=== PATIENT | female | born 1930 | race Caucasian/White ===

== ENCOUNTER 2019-12-11 15:13 | Inpatient (IN) ==
[2019-12-11] MEDS ORDERED: 0.9 % Sodium Chloride 1,000 ML IVC ONE (15:33)
[2019-12-11] MEDS ORDERED: cefTRIAXone 1,000 MG in Water for inj. (sterile) 10 ML IVP ONE (15:48)
[2019-12-11] MEDS ORDERED: Azithromycin 500 MG in 0.9 % Sodium Chloride 250 ML IVPB ONE (15:48)
[2019-12-11 15:52] LABS: Basophils % 0.1 %; Hematocrit 30.5 % (35.3-44.9); Lymphocytes # 0.6 K/mcL (0.6-4.6); Lymphocytes % 8.2 %; Mean Corpuscular HGB Conc 32.8 g/dL (31.6-35.5); Mean Corpuscular Hemoglobin 30.7 pg (28.0-33.3); Mean Corpuscular Volume 93.6 fL (83.0-100.0); Mean Platelet Volume 10.3 fL (9.4-12.4); Monocytes # 0.1 K/mcL (0.0-1.3); Neutrophils # 6.3 K/mcL (1.6-8.9); Platelet Count 165 K/mcL (140-400); Red Blood Count 3.26 M/mcL (3.82-4.97); Red Cell Distribution Width 12.7 % (11.5-14.5); Segmented Neutrophils % 89.7 %
[2019-12-11 16:17] LABS: Albumin 3.1 g/dL (3.5-5.7); Albumin/Globulin Ratio 0.9 (1.1-2.2); Bilirubin,Direct 0.2 mg/dL (0.0-0.2); Bilirubin,Indirect 0.5 mg/dL (0.0-1.0); Bilirubin,Total 0.7 mg/dL (0.3-1.0); Calcium 7.8 mg/dL (8.6-10.3); Globulin 3.6 g/dL (2.4-3.5); Potassium 3.9 mEq/L (3.5-5.1); Total Protein 6.7 g/dL (6.4-8.9); Troponin I 2.97 ng/mL (< 0.04)
[2019-12-11 16:17] LABS: Bacteria,Urine Few per hpf (None-Few); Bilirubin,Urine Negative (Negative); Blood,Urine Large (Negative); Clarity,Urine Turbid (Clear); Color,Urine Yellow (Yellow); Glucose,Urine (UA) Normal (Normal); Ketones,Urine Negative (Negative); Leukocyte Esterase,Urine Negative (Negative); Mucus,Urine Few per lpf (None-Few); Nitrite,Urine Negative (Negative); PH,Urine 5.5 pH Units (5.0-8.0); Protein,Urine >=300 mg/dL (Neg-Trace); RBC,Urine 15-30 per hpf (0-3); Specific Gravity,Urine 1.016 (1.010-1.025); Squamous Epithelial Cell,Urine Few per hpf (None-Few); Urobilinogen,Urine Normal (Normal)
[2019-12-11] MEDS ORDERED: Aspirin 325 MG TABLET PO ONE (16:21)
[2019-12-11] MEDS ORDERED: *HR* Heparin 5,000 UNIT/ML VIAL IVP PRN ×2 (16:34)
[2019-12-11] MEDS ORDERED: *HR* Heparin 5,000 UNIT/ML VIAL IVP ONE (16:34)
[2019-12-11] MEDS ORDERED: Heparin 25,000 UNIT/250 ML D5W 25,000 UNIT/250 ML IV.SOLN IVC SCH (16:45)
[2019-12-11] MEDS ORDERED: Vancomycin 1,500 MG/265 ML IV.SOLN IVPB ONE (19:00)
[2019-12-11 19:18] LABS: Hematocrit 28.6 % (35.3-44.9); Hemoglobin 9.2 g/dL (11.5-15.4); Mean Corpuscular HGB Conc 32.2 g/dL (31.6-35.5); Mean Corpuscular Hemoglobin 30.8 pg (28.0-33.3); Mean Corpuscular Volume 95.7 fL (83.0-100.0); Mean Platelet Volume 10.5 fL (9.4-12.4); Platelet Count 149 K/mcL (140-400); Red Blood Count 2.99 M/mcL (3.82-4.97); Red Cell Distribution Width 12.8 % (11.5-14.5)
[2019-12-11 19:28] LABS: INR 1.2; Prothrombin Time 13.3 Seconds (9.4-12.1)
[2019-12-11 19:35] LABS: Heparin anti-factor XA UFH 0.04 IU/mL (0.30-0.70)
[2019-12-12 02:20] LABS: Hematocrit 28.8 % (35.3-44.9); Hemoglobin 9.3 g/dL (11.5-15.4)
[2019-12-12 05:07] LABS: Troponin I 4.14 ng/mL (< 0.04)
[2019-12-12] MEDS: Cefepime HCl 1,000 MG in Water for inj. (sterile) 10 ML IVP SCH ×2 (05:38→18:43)
[2019-12-12] MEDS ORDERED: *HR* Promethazine 25 MG/ML VIAL IVP PRN (07:20)
[2019-12-12] MEDS: Aspirin 81 MG TAB.CHEW PO SCH (08:03)
[2019-12-12 08:13] LABS: Hematocrit 28.7 % (35.3-44.9); Hemoglobin 9.4 g/dL (11.5-15.4); Mean Corpuscular HGB Conc 32.8 g/dL (31.6-35.5); Mean Corpuscular Hemoglobin 31.8 pg (28.0-33.3); Mean Platelet Volume 10.4 fL (9.4-12.4); Platelet Count 150 K/mcL (140-400); Red Blood Count 2.96 M/mcL (3.82-4.97); Red Cell Distribution Width 12.9 % (11.5-14.5); White Blood Count 7.6 K/mcL (4.3-11.1)
[2019-12-12 08:30] LABS: Calcium 7.1 mg/dL (8.6-10.3); Potassium 3.9 mEq/L (3.5-5.1)
[2019-12-12 08:32] LABS: Magnesium 2.1 mg/dL (1.6-2.6); Phosphorous 3.6 mg/dL (2.7-4.5)
[2019-12-12 11:51] LABS: Adenovirus F 40/41 PCR Not detected (Not detect); Astrovirus PCR Not detected (Not detect); C.difficile Toxin A/B Gene PCR Not detected (Not detect); Campylobacter by PCR Not detected (Not detect); Cryptosporidium by PCR Not detected (Not detect); Cyclospora cayetanensis PCR Not detected (Not detect); E. coli O157 by PCR Not detected (Not detect); Entamoeba histolytica PCR Not detected (Not detect); Enteroaggregative E.coli(EAEC) Not detected (Not detect); Enteropathogenic E.coli(EPEC) Not detected (Not detect); Enterotoxigenic E.coli (ETEC) Not detected (Not detect); Giardia lamblia PCR Not detected (Not detect); Norovirus GI/GII PCR Not detected (Not detect); Plesiomonas shigelloides PCR Not detected (Not detect); Rotavirus A PCR Not detected (Not detect); Salmonella PCR Not detected (Not detect); Sapovirus PCR Not detected (Not detect); Shig/EnteroinvasiveE coli EIEC Not detected (Not detect); Shigalike tox-prod E coli STEC Not detected (Not detect); Vibrio PCR Not detected (Not detect); Vibrio cholerae PCR Not detected (Not detect); Yersinia enterocolitica PCR Not detected (Not detect)
[2019-12-12] MEDS ORDERED: Perflutren Lipid Microsphere 1.3 ML in 0.9 % Sodium Chloride 8.7 ML IVP ONE ×2 (12:29→18:04)
[2019-12-12] MEDS ORDERED: *HR* Etomidate 20 MG/10 ML AMPUL IVP ONE (14:11)
[2019-12-12] MEDS ORDERED: *HR* LORazepam 2 MG/ML VIAL IVP ONE (14:11)
[2019-12-12] MEDS ORDERED: *HR* Succinylcholine 200 MG/10 ML VIAL IVP ONE (14:11)
[2019-12-12] MEDS ORDERED: Azithromycin 500 MG in 0.9 % Sodium Chloride 250 ML IVPB SCH (16:00)
[2019-12-12] MEDS ORDERED: 0.9 % Sodium Chloride 1,000 ML ONE (17:16)
[2019-12-12 17:36] LABS: ABG Base Excess -11 mEq/L (-2 to 3); ABG HCO3 20 mEq/L (21-27); ABG Oxygen Saturation 86 % (95-98); ABG PCO2 67 mmHg (35-45); ABG PH 7.08 pH Units (7.32-7.45); ABG PO2 73 mmHg (85-104); ABG TCO2 22 mEq/L (20-26); Blood Gas VT 480 cc
[2019-12-12 17:51] LABS: ABG Base Excess -8 mEq/L (-2 to 3); ABG HCO3 20 mEq/L (21-27); ABG Oxygen Saturation 90 % (95-98); ABG PCO2 48 mmHg (35-45); ABG PH 7.22 pH Units (7.32-7.45); ABG PO2 72 mmHg (85-104); ABG TCO2 21 mEq/L (20-26); Blood Gas Modality ASSIST CONTROL; Blood Gas VT 480 cc
[2019-12-12] MEDS ORDERED: Isovue-370 500 ML BOTTLE IVP ONE (17:51)
[2019-12-12] MEDS ORDERED: Artificial Tears SOLN 15 ML BOTTLE BOTH EYES PRN (18:04)
[2019-12-12] MEDS ORDERED: Albuterol 2.5 MG/3 ML NEBULIZER IH PRN (18:06)
[2019-12-12] MEDS ORDERED: Aminoglycoside Consult 1 EACH MC ONE (18:09)
[2019-12-12] MEDS ORDERED: Vancomycin 1,500 MG/265 ML IV.SOLN IVPB ONE (18:29)
[2019-12-12] MEDS ORDERED: *HR* Heparin 5,000 UNIT/ML VIAL IVP PRN ×2 (18:40)
[2019-12-12] MEDS: FentaNYL (PF) 1,000 MCG/100 ML IV.SOLN IVC SCH (18:42)
[2019-12-12] MEDS: Midazolam HCl 50 MG/100 ML IV.SOLN IVC SCH (18:42)
[2019-12-12] MEDS ORDERED: Vancomycin 1 EACH in 0.9 % Sodium Chloride 250 ML IVPB SCH (19:00)
[2019-12-12] MEDS: Dexamethasone 10 MG/ML VIAL IVP SCH (19:51)
[2019-12-12] MEDS: Chlorhexidine Rinse 15 ML MOUTHWASH MM SCH (19:51)
[2019-12-12] MEDS: Pantoprazole 40 MG VIAL IVP SCH (19:51)
[2019-12-12 20:39] LABS: Amorphous Sediment,Urine Few per hpf (None-Few); Bacteria,Urine Few per hpf (None-Few); Bilirubin,Urine Negative (Negative); Blood,Urine Moderate (Negative); Clarity,Urine Turbid (Clear); Color,Urine Yellow (Yellow); Glucose,Urine (UA) Normal (Normal); Ketones,Urine Negative (Negative); Leukocyte Esterase,Urine Trace (Negative); Mucus,Urine Few per lpf (None-Few); Nitrite,Urine Negative (Negative); PH,Urine 5.5 pH Units (5.0-8.0); Protein,Urine 100 mg/dL (Neg-Trace); RBC,Urine TNTC per hpf (0-3); Specific Gravity,Urine 1.017 (1.010-1.025); Squamous Epithelial Cell,Urine Few per hpf (None-Few); Urobilinogen,Urine Normal (Normal); WBC,Urine 15-30 per hpf (0-3)
[2019-12-12 21:03] LABS: Protein/Creatinine Ratio,Urine 1.81 mg/mg (0.00-0.20); Sodium, Urine 55.8 mEq/L
[2019-12-12] MEDS: Artificial Tears SOLN 15 ML BOTTLE BOTH EYES SCH (21:16)
[2019-12-12] MEDS: Cisatracurium 200 MG in 0.9 % Sodium Chloride 180 ML IVC SCH (21:17)
[2019-12-12] MEDS: Heparin 25,000 UNIT/250 ML D5W 25,000 UNIT/250 ML IV.SOLN IVC SCH (21:18)
[2019-12-12] MEDS ORDERED: Ipratropium/Albuterol Neb 3 ML IH SCH (22:00)
[2019-12-13] MEDS: Artificial Tears SOLN 15 ML BOTTLE BOTH EYES SCH ×7 (00:17→23:40)
[2019-12-13 03:45] LABS: Basophils % 0.2 %; Hematocrit 30.6 % (35.3-44.9); Immature Granulocytes % 1.3 % (0-4); Lymphocytes # 0.9 K/mcL (0.6-4.6); Lymphocytes % 7.5 %; Mean Corpuscular HGB Conc 32.7 g/dL (31.6-35.5); Mean Corpuscular Hemoglobin 31.3 pg (28.0-33.3); Mean Corpuscular Volume 95.6 fL (83.0-100.0); Mean Platelet Volume 10.2 fL (9.4-12.4); Monocytes # 0.4 K/mcL (0.0-1.3); Monocytes % 3.4 %; Neutrophils # 10.1 K/mcL (1.6-8.9); Platelet Count 181 K/mcL (140-400); Segmented Neutrophils % 87.6 %; White Blood Count 11.5 K/mcL (4.3-11.1)
[2019-12-13 03:52] LABS: ABG Base Excess -1 mEq/L (-2 to 3); ABG HCO3 23 mEq/L (21-27); ABG Oxygen Saturation 96 % (95-98); ABG PCO2 37 mmHg (35-45); ABG PO2 82 mmHg (85-104); ABG TCO2 24 mEq/L (20-26); Blood Gas VT 450 cc
[2019-12-13 04:06] LABS: Uric Acid 8.9 mg/dL (2.3-7.6)
[2019-12-13 04:07] LABS: Albumin 2.7 g/dL (3.5-5.7); Albumin/Globulin Ratio 0.8 (1.1-2.2); Bilirubin,Total 0.4 mg/dL (0.3-1.0); Calcium 7.2 mg/dL (8.6-10.3); Globulin 3.5 g/dL (2.4-3.5); Magnesium 1.9 mg/dL (1.6-2.6); Phosphorous 3.7 mg/dL (2.7-4.5); Potassium 4.5 mEq/L (3.5-5.1); Total Protein 6.2 g/dL (6.4-8.9)
[2019-12-13] MEDS: Cefepime HCl 1,000 MG in Water for inj. (sterile) 10 ML IVP SCH ×2 (05:38→18:03)
[2019-12-13] MEDS: FentaNYL (PF) 1,000 MCG/100 ML IV.SOLN IVC SCH (08:31)
[2019-12-13] MEDS: Chlorhexidine Rinse 15 ML MOUTHWASH MM SCH ×2 (08:34→21:26)
[2019-12-13] MEDS: Aspirin 81 MG TAB.CHEW PO SCH (08:34)
[2019-12-13] MEDS: Pantoprazole 40 MG VIAL IVP SCH (08:34)
[2019-12-13] MEDS ORDERED: 0.9 % Sodium Chloride 500 ML ONE (13:47)
[2019-12-13] MEDS: Midazolam HCl 50 MG/100 ML IV.SOLN IVC SCH (17:53)
[2019-12-13] MEDS: Dexamethasone 10 MG/ML VIAL IVP SCH (18:02)
[2019-12-13] MEDS: Cisatracurium 200 MG in 0.9 % Sodium Chloride 180 ML IVC SCH (20:05)
[2019-12-13] MEDS: Albumin 25% 25gram/100mL 25 GM/100 ML IV.SOLN IVC SCH ×3 (20:07→23:39)
[2019-12-13] MEDS ORDERED: Vancomycin 500 MG in 0.9 % Sodium Chloride Mini Bag 100 ML IVPB ONE (22:06)
[2019-12-14] MEDS: Albumin 25% 25gram/100mL 25 GM/100 ML IV.SOLN IVC SCH ×5 (01:27→19:18)
[2019-12-14] MEDS: Heparin 25,000 UNIT/250 ML D5W 25,000 UNIT/250 ML IV.SOLN IVC SCH ×2 (04:00→11:10)
[2019-12-14 04:49] LABS: VBG Ionized Calcium 0.93 mmol/L (1.15-1.35)
[2019-12-14 04:58] LABS: Basophils % 0.2 %; Hematocrit 24.6 % (35.3-44.9); Hemoglobin 7.9 g/dL (11.5-15.4); Immature Granulocytes % 1.7 % (0-4); Lymphocytes % 16.1 %; Mean Corpuscular HGB Conc 32.1 g/dL (31.6-35.5); Mean Corpuscular Hemoglobin 30.7 pg (28.0-33.3); Mean Corpuscular Volume 95.7 fL (83.0-100.0); Mean Platelet Volume 10.7 fL (9.4-12.4); Monocytes # 0.2 K/mcL (0.0-1.3); Platelet Count 147 K/mcL (140-400); Red Blood Count 2.57 M/mcL (3.82-4.97); Red Cell Distribution Width 12.9 % (11.5-14.5); White Blood Count 6.3 K/mcL (4.3-11.1)
[2019-12-14 05:18] LABS: Albumin/Globulin Ratio 1.3 (1.1-2.2); Bilirubin,Total 0.7 mg/dL (0.3-1.0); Calcium 7.3 mg/dL (8.6-10.3); Magnesium 2.2 mg/dL (1.6-2.6); Phosphorous 3.1 mg/dL (2.7-4.5); Potassium 4.2 mEq/L (3.5-5.1)
[2019-12-14 05:33] LABS: ABG Base Excess -2 mEq/L (-2 to 3); ABG HCO3 22 mEq/L (21-27); ABG Oxygen Saturation 99 % (95-98); ABG PCO2 31 mmHg (35-45); ABG PH 7.46 pH Units (7.32-7.45); ABG PO2 149 mmHg (85-104); ABG TCO2 23 mEq/L (20-26); Blood Gas Modality AF; Blood Gas VT 450 cc
[2019-12-14] MEDS: Artificial Tears SOLN 15 ML BOTTLE BOTH EYES SCH ×6 (05:34→23:59)
[2019-12-14] MEDS: Cefepime HCl 1,000 MG in Water for inj. (sterile) 10 ML IVP SCH ×2 (06:17→18:06)
[2019-12-14 06:21] LABS: Platelet Estimate Normal (Normal)
[2019-12-14] MEDS: FentaNYL (PF) 1,000 MCG/100 ML IV.SOLN IVC SCH ×2 (06:47→20:49)
[2019-12-14] MEDS: Chlorhexidine Rinse 15 ML MOUTHWASH MM SCH ×2 (08:23→20:12)
[2019-12-14] MEDS: Aspirin 81 MG TAB.CHEW PO SCH (08:23)
[2019-12-14] MEDS: Pantoprazole 40 MG VIAL IVP SCH (08:24)
[2019-12-14 11:55] LABS: Sodium, Urine 45.3 mEq/L
[2019-12-14] MEDS ORDERED: 0.9 % Sodium Chloride 500 ML ONE (16:22)
[2019-12-14] MEDS ORDERED: 0.9 % Sodium Chloride 1,000 ML IVC SCH (16:45)
[2019-12-14] MEDS: Dexamethasone 10 MG/ML VIAL IVP SCH (18:06)
[2019-12-14 19:35] LABS: ABG Base Excess -3 mEq/L (-2 to 3); ABG HCO3 24 mEq/L (21-27); ABG Oxygen Saturation 99 % (95-98); ABG PCO2 51 mmHg (35-45); ABG PH 7.27 pH Units (7.32-7.45); ABG PO2 136 mmHg (85-104); ABG TCO2 25 mEq/L (20-26); Blood Gas Modality ASSIST CONTROL; Blood Gas VT 380 cc
[2019-12-14] MEDS: Midazolam HCl 50 MG/100 ML IV.SOLN IVC SCH (20:09)
[2019-12-14] MEDS: Docusate Oral Soln 100 MG/10 ML UDC GTUBE SCH (20:12)
[2019-12-14] MEDS: Cisatracurium 200 MG in 0.9 % Sodium Chloride 180 ML IVC SCH (20:51)
[2019-12-15] MEDS: Heparin 25,000 UNIT/250 ML D5W 25,000 UNIT/250 ML IV.SOLN IVC SCH
[2019-12-15] MEDS ORDERED: Vancomycin 500 MG in 0.9 % Sodium Chloride Mini Bag 100 ML IVPB SCH (03:00)
[2019-12-15 03:58] LABS: VBG Ionized Calcium 0.94 mmol/L (1.15-1.35)
[2019-12-15 04:12] LABS: Albumin 4.3 g/dL (3.5-5.7); Albumin/Globulin Ratio 1.9 (1.1-2.2); Bilirubin,Total 0.6 mg/dL (0.3-1.0); Calcium 7.1 mg/dL (8.6-10.3); Globulin 2.3 g/dL (2.4-3.5); Magnesium 2.3 mg/dL (1.6-2.6); Phosphorous 2.9 mg/dL (2.7-4.5); Potassium 4.1 mEq/L (3.5-5.1); Total Protein 6.6 g/dL (6.4-8.9)
[2019-12-15 04:14] LABS: Heparin anti-factor XA UFH 0.74 IU/mL (0.30-0.70)
[2019-12-15] MEDS: Artificial Tears SOLN 15 ML BOTTLE BOTH EYES SCH ×5 (04:16→19:42)
[2019-12-15 04:37] LABS: ABG Base Excess -3 mEq/L (-2 to 3); ABG HCO3 23 mEq/L (21-27); ABG Oxygen Saturation 96 % (95-98); ABG PCO2 41 mmHg (35-45); ABG PH 7.35 pH Units (7.32-7.45); ABG PO2 83 mmHg (85-104); ABG TCO2 24 mEq/L (20-26); Blood Gas Modality ASSIST CONTROL; Blood Gas VT 400 cc
[2019-12-15 05:17] LABS: Basophils % 0.2 %; Hematocrit 23.6 % (35.3-44.9); Hemoglobin 7.4 g/dL (11.5-15.4); Immature Granulocytes % 4.8 % (0-4); Lymphocytes # 0.9 K/mcL (0.6-4.6); Lymphocytes % 10.8 %; Mean Corpuscular HGB Conc 31.4 g/dL (31.6-35.5); Mean Corpuscular Hemoglobin 31.1 pg (28.0-33.3); Mean Corpuscular Volume 99.2 fL (83.0-100.0); Monocytes # 0.4 K/mcL (0.0-1.3); Monocytes % 4.6 %; Platelet Count 170 K/mcL (140-400); Red Blood Count 2.38 M/mcL (3.82-4.97); Segmented Neutrophils % 79.6 %; White Blood Count 8.1 K/mcL (4.3-11.1)
[2019-12-15 05:22] LABS: Neutrophils # 6.5 K/mcL (1.6-8.9)
[2019-12-15 05:49] LABS: Platelet Estimate Normal (Normal); Reactive Lymphocytes Present (Not Present)
[2019-12-15] MEDS: Cefepime HCl 1,000 MG in Water for inj. (sterile) 10 ML IVP SCH ×2 (05:52→17:59)
[2019-12-15] MEDS: Pantoprazole 40 MG VIAL IVP SCH ×2 (07:49→19:42)
[2019-12-15] MEDS: Aspirin 81 MG TAB.CHEW PO SCH (07:49)
[2019-12-15] MEDS: Docusate Oral Soln 100 MG/10 ML UDC GTUBE SCH ×2 (07:49→19:42)
[2019-12-15] MEDS: Chlorhexidine Rinse 15 ML MOUTHWASH MM SCH ×2 (07:49→19:42)
[2019-12-15] MEDS ORDERED: *HR* Heparin 5,000 UNIT/ML VIAL ONE (09:20)
[2019-12-15] MEDS: FentaNYL (PF) 1,000 MCG/100 ML IV.SOLN IVC SCH ×2 (10:10→21:42)
[2019-12-15] MEDS ORDERED: 0.9 % Sodium Chloride 500 ML ONE (10:40)
[2019-12-15] MEDS: Calcium Gluconate 1gm/50mL 1 GM/50 ML BAG IVPB SCH ×2 (15:07→15:58)
[2019-12-15 17:21] LABS: VBG Ionized Calcium 1.07 mmol/L (1.15-1.35)
[2019-12-15 17:29] LABS: Hematocrit 25.1 % (35.3-44.9)
[2019-12-15 17:36] LABS: Calcium 7.8 mg/dL (8.6-10.3); Magnesium 2.3 mg/dL (1.6-2.6); Phosphorous 2.4 mg/dL (2.7-4.5); Potassium 3.9 mEq/L (3.5-5.1)
[2019-12-15] MEDS: Midazolam HCl 50 MG/100 ML IV.SOLN IVC SCH (17:54)
[2019-12-15] MEDS: Dexamethasone 10 MG/ML VIAL IVP SCH (18:00)
[2019-12-15] MEDS: Cisatracurium 200 MG in 0.9 % Sodium Chloride 180 ML IVC SCH (19:42)
[2019-12-16] MEDS: Artificial Tears SOLN 15 ML BOTTLE BOTH EYES SCH ×6 (03:18→19:45)
[2019-12-16 03:27] LABS: Hematocrit 25.9 % (35.3-44.9); Hemoglobin 8.2 g/dL (11.5-15.4); Mean Corpuscular HGB Conc 31.7 g/dL (31.6-35.5); Mean Corpuscular Hemoglobin 30.7 pg (28.0-33.3); Mean Platelet Volume 10.4 fL (9.4-12.4); Platelet Count 179 K/mcL (140-400); Red Blood Count 2.67 M/mcL (3.82-4.97); Red Cell Distribution Width 13.5 % (11.5-14.5); White Blood Count 9.2 K/mcL (4.3-11.1)
[2019-12-16 03:29] LABS: VBG Ionized Calcium 1.04 mmol/L (1.15-1.35)
[2019-12-16 03:43] LABS: ABG Base Excess -2 mEq/L (-2 to 3); ABG HCO3 24 mEq/L (21-27); ABG Oxygen Saturation 94 % (95-98); ABG PCO2 42 mmHg (35-45); ABG PH 7.36 pH Units (7.32-7.45); ABG PO2 71 mmHg (85-104); ABG TCO2 25 mEq/L (20-26); Blood Gas Modality AF; Blood Gas VT 400 cc
[2019-12-16 03:43] LABS: Lymphocytes # 0.7 K/mcL (0.6-4.6); Monocytes # 0.7 K/mcL (0.0-1.3); Neutrophils # 7.7 K/mcL (1.6-8.9)
[2019-12-16 03:44] LABS: Platelet Estimate Normal (Normal)
[2019-12-16 03:49] LABS: Albumin/Globulin Ratio 1.7 (1.1-2.2); Bilirubin,Total 0.7 mg/dL (0.3-1.0); Calcium 7.5 mg/dL (8.6-10.3); Globulin 2.4 g/dL (2.4-3.5); Magnesium 2.3 mg/dL (1.6-2.6); Phosphorous 1.8 mg/dL (2.7-4.5); Potassium 4.3 mEq/L (3.5-5.1); Total Protein 6.4 g/dL (6.4-8.9)
[2019-12-16] MEDS ORDERED: Vancomycin 500 MG in 0.9 % Sodium Chloride Mini Bag 100 ML IVPB ONE (05:00)
[2019-12-16] MEDS: Cefepime HCl 1,000 MG in Water for inj. (sterile) 10 ML IVP SCH ×2 (05:12→17:00)
[2019-12-16] MEDS: Cisatracurium 200 MG in 0.9 % Sodium Chloride 180 ML IVC SCH (06:20)
[2019-12-16] MEDS: FentaNYL (PF) 1,000 MCG/100 ML IV.SOLN IVC SCH ×3 (07:00→21:57)
[2019-12-16] MEDS: Chlorhexidine Rinse 15 ML MOUTHWASH MM SCH ×2 (07:01→19:45)
[2019-12-16] MEDS: Aspirin 81 MG TAB.CHEW PO SCH (07:26)
[2019-12-16] MEDS: Pantoprazole 40 MG VIAL IVP SCH ×2 (07:26→19:46)
[2019-12-16] MEDS: Docusate Oral Soln 100 MG/10 ML UDC GTUBE SCH ×2 (07:26→19:45)
[2019-12-16] MEDS: Calcium Gluconate 1gm/50mL 1 GM/50 ML BAG IVPB SCH ×2 (07:37→08:12)
[2019-12-16] MEDS ORDERED: Albumin 25% 25gram/100mL 25 GM/100 ML IV.SOLN IVPB ONE (09:31)
[2019-12-16] MEDS: Midazolam HCl 50 MG/100 ML IV.SOLN IVC SCH (10:35)
[2019-12-16] MEDS ORDERED: Furosemide 40 MG/4 ML VIAL IVP ONE ×2 (11:00→21:00)
[2019-12-16] MEDS: Dexamethasone 10 MG/ML VIAL IVP SCH (17:00)
[2019-12-16] MEDS: *HR* Heparin 5,000 UNIT/ML VIAL SQ SCH (17:01)
[2019-12-17] MEDS: Artificial Tears SOLN 15 ML BOTTLE BOTH EYES SCH ×7 (00:09→23:09)
[2019-12-17 03:59] LABS: Basophils # 0.1 K/mcL (0.0-0.2); Basophils % 0.5 %; Hematocrit 25.6 % (35.3-44.9); Hemoglobin 8.1 g/dL (11.5-15.4); Immature Granulocytes % 8.8 % (0-4); Lymphocytes # 1.1 K/mcL (0.6-4.6); Lymphocytes % 10.2 %; Mean Corpuscular HGB Conc 31.6 g/dL (31.6-35.5); Mean Corpuscular Hemoglobin 31.2 pg (28.0-33.3); Mean Corpuscular Volume 98.5 fL (83.0-100.0); Mean Platelet Volume 10.6 fL (9.4-12.4); Monocytes # 0.8 K/mcL (0.0-1.3); Monocytes % 7.4 %; Platelet Count 183 K/mcL (140-400); Red Cell Distribution Width 13.8 % (11.5-14.5); Segmented Neutrophils % 73.1 %
[2019-12-17 04:02] LABS: VBG Ionized Calcium 1.05 mmol/L (1.15-1.35)
[2019-12-17] MEDS: Midazolam HCl 50 MG/100 ML IV.SOLN IVC SCH (04:05)
[2019-12-17 04:07] LABS: ABG Base Excess 1 mEq/L (-2 to 3); ABG HCO3 26 mEq/L (21-27); ABG Oxygen Saturation 97 % (95-98); ABG PCO2 44 mmHg (35-45); ABG PH 7.38 pH Units (7.32-7.45); ABG PO2 95 mmHg (85-104); ABG TCO2 27 mEq/L (20-26); Blood Gas VT 400 cc
[2019-12-17 04:22] LABS: Albumin 4.1 g/dL (3.5-5.7); Albumin/Globulin Ratio 1.6 (1.1-2.2); Bilirubin,Total 0.7 mg/dL (0.3-1.0); Calcium 7.7 mg/dL (8.6-10.3); Globulin 2.5 g/dL (2.4-3.5); Magnesium 2.2 mg/dL (1.6-2.6); Phosphorous 2.8 mg/dL (2.7-4.5); Platelet Estimate Normal (Normal); Potassium 4.5 mEq/L (3.5-5.1); Total Protein 6.6 g/dL (6.4-8.9)
[2019-12-17] MEDS: *HR* Heparin 5,000 UNIT/ML VIAL SQ SCH ×2 (04:53→18:10)
[2019-12-17] MEDS: Cefepime HCl 1,000 MG in Water for inj. (sterile) 10 ML IVP SCH ×2 (04:53→18:10)
[2019-12-17] MEDS: FentaNYL (PF) 1,000 MCG/100 ML IV.SOLN IVC SCH ×3 (04:54→20:27)
[2019-12-17] MEDS ORDERED: Vancomycin 500 MG in 0.9 % Sodium Chloride Mini Bag 100 ML IVPB ONE (05:00)
[2019-12-17] MEDS: Calcium Gluconate 1gm/50mL 1 GM/50 ML BAG IVPB SCH ×2 (05:35→06:12)
[2019-12-17 06:02] LABS: INR 1.1; Prothrombin Time 12.7 Seconds (9.4-12.1)
[2019-12-17 06:04] LABS: Activated Partial Thrombo Time 25.2 Seconds (26.0-36.0)
[2019-12-17] MEDS ORDERED: Albumin 25% 25gram/100mL 25 GM/100 ML IV.SOLN IVPB SCH (09:00)
[2019-12-17] MEDS: Aspirin 81 MG TAB.CHEW PO SCH (09:15)
[2019-12-17] MEDS: Docusate Oral Soln 100 MG/10 ML UDC GTUBE SCH ×2 (09:15→19:58)
[2019-12-17] MEDS: Chlorhexidine Rinse 15 ML MOUTHWASH MM SCH ×2 (09:16→19:58)
[2019-12-17] MEDS: Pantoprazole 40 MG VIAL IVP SCH ×2 (09:16→19:58)
[2019-12-17] MEDS: Furosemide 40 MG/4 ML VIAL IVP SCH ×2 (09:16→19:59)
[2019-12-17] MEDS ORDERED: *HR* Heparin 5,000 UNIT/ML VIAL CRRT PRN (09:50)
[2019-12-17] MEDS ORDERED: *HR* Alteplase (Cathflo) 2 MG VIAL IVP PRN (09:50)
[2019-12-17] MEDS ORDERED: 0.9 % Sodium Chloride 1,000 ML PRIME ONE ×2 (09:50)
[2019-12-17] MEDS ORDERED: 0.9 % Sodium Chloride 1,000 ML PRIME SCH (10:00)
[2019-12-17] MEDS: Dexmedetomidine HCl 400 MCG/100 ML MLS IVC SCH ×3 (10:20→20:59)
[2019-12-17] MEDS: Furosemide 240 MG in 0.9 % Sodium Chloride 96 ML IVC SCH (12:43)
[2019-12-17] MEDS ORDERED: Aminoglycoside Consult 1 EACH MC ONE (14:50)
[2019-12-17] MEDS: PrismaSATE BGK 4/2.5 5,000 ML CRRT SCH ×2 (15:49)
[2019-12-17] MEDS: Albumin 25% 25gram/100mL 25 GM/100 ML IV.SOLN IVPB SCH ×2 (15:51→23:07)
[2019-12-17] MEDS: Dexamethasone 10 MG/ML VIAL IVP SCH (18:09)
[2019-12-17] MEDS: Cisatracurium 200 MG in 0.9 % Sodium Chloride 180 ML IVC SCH (18:11)
[2019-12-18] MEDS: Dexmedetomidine HCl 400 MCG/100 ML MLS IVC SCH ×5 (01:55→21:21)
[2019-12-18] MEDS: FentaNYL (PF) 1,000 MCG/100 ML IV.SOLN IVC SCH ×5 (02:26→23:07)
[2019-12-18] MEDS: Artificial Tears SOLN 15 ML BOTTLE BOTH EYES SCH ×5 (03:54→21:13)
[2019-12-18 04:35] LABS: Basophils # 0.1 K/mcL (0.0-0.2); Basophils % 0.5 %; Hematocrit 27.3 % (35.3-44.9); Hemoglobin 8.8 g/dL (11.5-15.4); Immature Granulocytes % 8.5 % (0-4); Lymphocytes # 1.1 K/mcL (0.6-4.6); Lymphocytes % 12.3 %; Mean Corpuscular HGB Conc 32.2 g/dL (31.6-35.5); Mean Corpuscular Hemoglobin 30.9 pg (28.0-33.3); Mean Corpuscular Volume 95.8 fL (83.0-100.0); Mean Platelet Volume 10.8 fL (9.4-12.4); Monocytes # 0.6 K/mcL (0.0-1.3); Monocytes % 6.2 %; Neutrophils # 6.7 K/mcL (1.6-8.9); Platelet Count 189 K/mcL (140-400); Red Blood Count 2.85 M/mcL (3.82-4.97); Red Cell Distribution Width 13.2 % (11.5-14.5); Segmented Neutrophils % 72.5 %; White Blood Count 9.2 K/mcL (4.3-11.1)
[2019-12-18 05:17] LABS: Platelet Estimate Normal (Normal)
[2019-12-18] MEDS: *HR* Heparin 5,000 UNIT/ML VIAL SQ SCH ×2 (05:49→17:39)
[2019-12-18] MEDS: Cefepime HCl 1,000 MG in Water for inj. (sterile) 10 ML IVP SCH ×2 (05:50→17:37)
[2019-12-18 06:13] LABS: Albumin 5.3 g/dL (3.5-5.7); Bilirubin,Total 1.2 mg/dL (0.3-1.0); Calcium 9.3 mg/dL (8.6-10.3); Globulin 2.7 g/dL (2.4-3.5); Potassium 3.8 mEq/L (3.5-5.1)
[2019-12-18] MEDS: Docusate Oral Soln 100 MG/10 ML UDC GTUBE SCH ×2 (08:02→21:12)
[2019-12-18] MEDS: Aspirin 81 MG TAB.CHEW PO SCH (08:03)
[2019-12-18] MEDS: Pantoprazole 40 MG VIAL IVP SCH ×2 (08:03→21:12)
[2019-12-18] MEDS: Chlorhexidine Rinse 15 ML MOUTHWASH MM SCH ×2 (08:03→21:12)
[2019-12-18] MEDS: Albumin 25% 25gram/100mL 25 GM/100 ML IV.SOLN IVPB SCH ×2 (08:03→15:59)
[2019-12-18] MEDS: PrismaSATE BGK 4/2.5 5,000 ML CRRT SCH ×2 (09:10)
[2019-12-18] MEDS: Furosemide 240 MG in 0.9 % Sodium Chloride 96 ML IVC SCH (10:44)
[2019-12-18] MEDS: Bisacodyl 10 MG RECTAL SUPPOSITORY RC SCH (11:56)
[2019-12-18] MEDS: Metoclopramide 10 MG/2 ML VIAL IVP SCH (16:00)
[2019-12-18] MEDS: Dexamethasone 10 MG/ML VIAL IVP SCH (17:40)
[2019-12-18] MEDS: Midazolam HCl 50 MG/100 ML IV.SOLN IVC SCH (18:12)
[2019-12-18] MEDS: Cisatracurium 200 MG in 0.9 % Sodium Chloride 180 ML IVC SCH (18:18)
[2019-12-19] MEDS: Artificial Tears SOLN 15 ML BOTTLE BOTH EYES SCH ×7 (00:21→23:39)
[2019-12-19] MEDS: Metoclopramide 10 MG/2 ML VIAL IVP SCH ×4 (00:21→23:47)
[2019-12-19] MEDS: Albumin 25% 25gram/100mL 25 GM/100 ML IV.SOLN IVPB SCH ×4 (00:21→23:47)
[2019-12-19] MEDS: Dexmedetomidine HCl 400 MCG/100 ML MLS IVC SCH ×5 (02:21→23:52)
[2019-12-19 03:57] LABS: ABG Base Excess 9 mEq/L (-2 to 3); ABG HCO3 32 mEq/L (21-27); ABG Oxygen Saturation 97 % (95-98); ABG PCO2 38 mmHg (35-45); ABG PH 7.53 pH Units (7.32-7.45); ABG PO2 81 mmHg (85-104); ABG TCO2 33 mEq/L (20-26); Blood Gas Modality ASSIST CONTROL; Blood Gas VT 400 cc
[2019-12-19] MEDS: FentaNYL (PF) 1,000 MCG/100 ML IV.SOLN IVC SCH ×2 (05:28→14:23)
[2019-12-19 05:31] LABS: Hematocrit 27.2 % (35.3-44.9); Hemoglobin 8.8 g/dL (11.5-15.4); Mean Corpuscular HGB Conc 32.4 g/dL (31.6-35.5); Mean Corpuscular Hemoglobin 31.1 pg (28.0-33.3); Mean Corpuscular Volume 96.1 fL (83.0-100.0); Mean Platelet Volume 10.8 fL (9.4-12.4); Platelet Count 181 K/mcL (140-400); Red Blood Count 2.83 M/mcL (3.82-4.97); Red Cell Distribution Width 12.9 % (11.5-14.5); White Blood Count 10.1 K/mcL (4.3-11.1)
[2019-12-19 05:48] LABS: Calcium 9.2 mg/dL (8.6-10.3); Phosphorous 3.7 mg/dL (2.7-4.5); Potassium 3.7 mEq/L (3.5-5.1)
[2019-12-19] MEDS: *HR* Heparin 5,000 UNIT/ML VIAL SQ SCH ×2 (06:20→17:05)
[2019-12-19] MEDS: Cefepime HCl 1,000 MG in Water for inj. (sterile) 10 ML IVP SCH ×2 (06:20→17:06)
[2019-12-19] MEDS ORDERED: Dextrose Gel 15 GM/37.5 ML TUBE PO PRN ×2 (06:35)
[2019-12-19] MEDS ORDERED: *HR* Dextrose 50 % in Water (Vial) 50 ML VIAL IVP PRN (06:35)
[2019-12-19] MEDS ORDERED: D5% in Water 1,000 ML IVC PRN (06:35)
[2019-12-19] MEDS: Chlorhexidine Rinse 15 ML MOUTHWASH MM SCH ×2 (09:05→20:08)
[2019-12-19] MEDS: Aspirin 81 MG TAB.CHEW PO SCH (09:05)
[2019-12-19] MEDS: Pantoprazole 40 MG VIAL IVP SCH ×2 (09:05→20:08)
[2019-12-19] MEDS: Bisacodyl 10 MG RECTAL SUPPOSITORY RC SCH (09:05)
[2019-12-19] MEDS: Docusate Oral Soln 100 MG/10 ML UDC GTUBE SCH ×2 (09:05→20:08)
[2019-12-19] MEDS: PrismaSATE BGK 4/2.5 5,000 ML CRRT SCH ×2 (10:37)
[2019-12-19] MEDS: Furosemide 240 MG in 0.9 % Sodium Chloride 96 ML IVC SCH (11:25)
[2019-12-19] MEDS: Midazolam HCl 50 MG/100 ML IV.SOLN IVC SCH ×2 (12:09→23:50)
[2019-12-19] MEDS: Insulin LISPRO 300 UNITS/3 ML VIAL SQ SCH ×2 (12:39→18:02)
[2019-12-19] MEDS: Lactulose Oral Soln 20 GM/30 ML UDC PO SCH (17:05)
[2019-12-19] MEDS: Dexamethasone 10 MG/ML VIAL IVP SCH (17:06)
[2019-12-19] MEDS: Cisatracurium 200 MG in 0.9 % Sodium Chloride 180 ML IVC SCH (18:23)
[2019-12-19] MEDS ORDERED: *HR* Midazolam HCl 2 MG/2 ML VIAL IVP PRN (21:37)
[2019-12-19] MEDS: FentaNYL (PF) 2,500 MCG/50 ML IV.SOLN IVC SCH (22:34)
[2019-12-19] MEDS ORDERED: *HR* Midazolam HCl 2 MG/2 ML VIAL IVP ONE (23:39)
[2019-12-20] MEDS: Insulin LISPRO 300 UNITS/3 ML VIAL SQ SCH ×5 (01:20→23:49)
[2019-12-20] MEDS: Artificial Tears SOLN 15 ML BOTTLE BOTH EYES SCH ×6 (03:45→23:49)
[2019-12-20] MEDS: Dexmedetomidine HCl 400 MCG/100 ML MLS IVC SCH ×4 (04:10→22:49)
[2019-12-20 04:53] LABS: Basophils % 0.4 %; Eosinophils % 0.3 %; Hematocrit 24.5 % (35.3-44.9); Immature Granulocytes % 4.2 % (0-4); Lymphocytes # 0.9 K/mcL (0.6-4.6); Lymphocytes % 9.2 %; Mean Corpuscular HGB Conc 32.7 g/dL (31.6-35.5); Mean Corpuscular Hemoglobin 31.1 pg (28.0-33.3); Mean Corpuscular Volume 95.3 fL (83.0-100.0); Mean Platelet Volume 10.7 fL (9.4-12.4); Monocytes # 0.7 K/mcL (0.0-1.3); Monocytes % 6.9 %; Neutrophils # 7.6 K/mcL (1.6-8.9); Platelet Count 177 K/mcL (140-400); Red Blood Count 2.57 M/mcL (3.82-4.97); White Blood Count 9.6 K/mcL (4.3-11.1)
[2019-12-20 05:12] LABS: Albumin 5.5 g/dL (3.5-5.7); Albumin/Globulin Ratio 2.4 (1.1-2.2); Bilirubin,Total 1.4 mg/dL (0.3-1.0); Calcium 8.9 mg/dL (8.6-10.3); Globulin 2.3 g/dL (2.4-3.5); Potassium 3.4 mEq/L (3.5-5.1); Total Protein 7.8 g/dL (6.4-8.9)
[2019-12-20] MEDS: Cefepime HCl 1,000 MG in Water for inj. (sterile) 10 ML IVP SCH ×2 (05:49→17:21)
[2019-12-20] MEDS: Lactulose Oral Soln 20 GM/30 ML UDC PO SCH ×2 (05:50→17:23)
[2019-12-20] MEDS: *HR* Heparin 5,000 UNIT/ML VIAL SQ SCH ×2 (05:51→17:22)
[2019-12-20 05:52] LABS: ABG Base Excess 7 mEq/L (-2 to 3); ABG HCO3 32 mEq/L (21-27); ABG Oxygen Saturation 96 % (95-98); ABG PCO2 47 mmHg (35-45); ABG PH 7.44 pH Units (7.32-7.45); ABG PO2 81 mmHg (85-104); ABG TCO2 34 mEq/L (20-26); Blood Gas Modality AF; Blood Gas VT 450 cc
[2019-12-20] MEDS: Albumin 25% 25gram/100mL 25 GM/100 ML IV.SOLN IVPB SCH ×3 (09:00→23:21)
[2019-12-20] MEDS: Pantoprazole 40 MG VIAL IVP SCH ×2 (09:02→19:55)
[2019-12-20] MEDS: Docusate Oral Soln 100 MG/10 ML UDC GTUBE SCH ×2 (09:02→19:55)
[2019-12-20] MEDS: Chlorhexidine Rinse 15 ML MOUTHWASH MM SCH ×2 (09:02→19:56)
[2019-12-20] MEDS: Metoclopramide 10 MG/2 ML VIAL IVP SCH ×3 (09:02→23:21)
[2019-12-20] MEDS: Aspirin 81 MG TAB.CHEW PO SCH (09:03)
[2019-12-20] MEDS: PrismaSATE BGK 4/2.5 5,000 ML CRRT SCH ×2 (10:21)
[2019-12-20] MEDS: Midazolam HCl 50 MG/100 ML IV.SOLN IVC SCH ×2 (11:54→22:51)
[2019-12-20] MEDS: FentaNYL (PF) 2,500 MCG/50 ML IV.SOLN IVC SCH ×2 (11:55→22:51)
[2019-12-20] MEDS ORDERED: Milk and Molasses Enema 200 ML RC ONE (14:44)
[2019-12-20] MEDS: Dexamethasone 10 MG/ML VIAL IVP SCH (17:22)
[2019-12-20] MEDS: Cisatracurium 200 MG in 0.9 % Sodium Chloride 180 ML IVC SCH (19:12)
[2019-12-20] MEDS ORDERED: Furosemide 40 MG/4 ML VIAL IVP SCH (21:00)
[2019-12-21] MEDS: Dexmedetomidine HCl 400 MCG/100 ML MLS IVC SCH (01:15)
[2019-12-21 04:08] VITALS: BP 129/54
== END 2019-12-21 05:12 | disposition short-term general hospital (02) | DRG 870 ==
LOC: 2NENU 15:13 → EMEROOARM 15:13 → SUATTDRO 18:08 → 2NENU 19:55
PROVIDERS: ADMIT Internal Medicine; ATTEND Internal Medicine

== ENCOUNTER 2020-11-07 09:14 | Inpatient (IN) ==
[2020-11-07] MEDS ORDERED: 0.9 % Sodium Chloride 1,000 ML IVC ONE (09:19)
[2020-11-07] MEDS ORDERED: Furosemide 40 MG/4 ML VIAL ONE (09:26)
[2020-11-07 09:29] LABS: ABG Base Excess -4 mEq/L (-2 to 3); ABG HCO3 23 mEq/L (21-27); ABG Oxygen Saturation 90 % (95-98); ABG PCO2 48 mmHg (35-45); ABG PH 7.28 pH Units (7.32-7.45); ABG PO2 66 mmHg (85-104); ABG TCO2 24 mEq/L (20-26)
[2020-11-07] MEDS ORDERED: Piperacillin/Tazobactam 3.375 GM in 0.9 % Sodium Chloride Mini Bag 100 ML IVPB ONE (09:42)
[2020-11-07] MEDS ORDERED: Furosemide 40 MG/4 ML VIAL IVP ONE (09:45)
[2020-11-07 09:46] LABS: Hematocrit 39.1 % (35.3-44.9); Hemoglobin 12.1 g/dL (11.5-15.4); Mean Corpuscular HGB Conc 30.9 g/dL (31.6-35.5); Mean Corpuscular Hemoglobin 30.8 pg (28.0-33.3); Mean Corpuscular Volume 99.5 fL (83.0-100.0); Mean Platelet Volume 11.8 fL (9.4-12.4); Platelet Count 262 K/mcL (140-400); Red Blood Count 3.93 M/mcL (3.82-4.97); Red Cell Distribution Width 13.8 % (11.5-14.5); White Blood Count 24.4 K/mcL (4.3-11.1)
[2020-11-07 10:12] LABS: Lymphocytes # 10.3 K/mcL (0.6-4.6); Neutrophils # 14.2 K/mcL (1.6-8.9); Reactive Lymphocytes Present (Not Present)
[2020-11-07 10:13] LABS: Platelet Estimate Normal (Normal)
[2020-11-07 11:07] LABS: Bacteria,Urine Few per hpf (None-Few); Bilirubin,Urine Negative (Negative); Blood,Urine Large (Negative); Budding Yeast,Urine Few per hpf (None Seen); Clarity,Urine Clear (Clear); Color,Urine Yellow (Yellow); Glucose,Urine (UA) Normal (Normal); Ketones,Urine Negative (Negative); Leukocyte Esterase,Urine Trace (Negative); Mucus,Urine Few per lpf (None-Few); Nitrite,Urine Negative (Negative); Protein,Urine 50 mg/dL (Neg-Trace); RBC,Urine TNTC per hpf (0-3); Specific Gravity,Urine 1.015 (1.010-1.025); Squamous Epithelial Cell,Urine Few per hpf (None-Few); Urobilinogen,Urine Normal (Normal); WBC,Urine 15-30 per hpf (0-3)
[2020-11-07 11:26] LABS: Calcium 8.6 mg/dL (8.6-10.3); Potassium 3.3 mEq/L (3.5-5.1); Troponin I 0.35 ng/mL (< 0.04)
[2020-11-07] MEDS ORDERED: Aspirin 81 MG TAB.CHEW PO SCH (11:45)
[2020-11-07] MEDS ORDERED: Ondansetron 4 MG/2 ML VIAL IVP PRN (11:52)
[2020-11-07] MEDS ORDERED: Naloxone 0.4 MG/ML INJ IVP PRN (11:52)
[2020-11-07] MEDS ORDERED: Perflutren Lipid Microsphere 1.3 ML in 0.9 % Sodium Chloride 8.7 ML IVP PRN (11:54)
[2020-11-07] MEDS ORDERED: *HR* Heparin 5,000 UNIT/ML VIAL IVP PRN ×2 (16:03)
[2020-11-07] MEDS: Heparin 25,000UNIT/250ML 1/2NS 25,000 UNIT/250 ML IV.SOLN IVC SCH (17:27)
[2020-11-07] MEDS ORDERED: *HR* Heparin 5,000 UNIT/ML VIAL SQ SCH (18:00)
[2020-11-07] MEDS: Piperacillin/Tazobactam 3.375 GM in 0.9 % Sodium Chloride Mini Bag 100 ML IVPB SCH (20:41)
[2020-11-08 00:48] LABS: VBG HCO3 25 mEq/L (21-27); VBG PCO2 42 mmHg (41-51); VBG PH 7.39 pH Units (7.32-7.42); VBG PO2 75 mmHg (25-50)
[2020-11-08 00:49] LABS: Basophils # 0.1 K/mcL (0.0-0.2); Basophils % 0.5 %; Eosinophils # 0.1 K/mcL (0.0-0.6); Eosinophils % 0.5 %; Immature Granulocytes % 0.9 % (0-4); Lymphocytes # 2.8 K/mcL (0.6-4.6); Lymphocytes % 18.8 %; Mean Corpuscular HGB Conc 31.9 g/dL (31.6-35.5); Mean Corpuscular Hemoglobin 30.8 pg (28.0-33.3); Mean Corpuscular Volume 96.6 fL (83.0-100.0); Monocytes % 6.7 %; Neutrophils # 10.9 K/mcL (1.6-8.9); Platelet Count 171 K/mcL (140-400); Red Blood Count 3.21 M/mcL (3.82-4.97); Red Cell Distribution Width 13.9 % (11.5-14.5); Segmented Neutrophils % 72.6 %
[2020-11-08 00:50] LABS: Hemoglobin 9.9 g/dL (11.5-15.4)
[2020-11-08 01:07] LABS: Magnesium 1.8 mg/dL (1.6-2.6); Phosphorous 4.4 mg/dL (2.7-4.5); Potassium 3.7 mEq/L (3.5-5.1)
[2020-11-08] MEDS: Aspirin Enteric Coated 81 MG Tablet PO SCH (07:51)
[2020-11-08] MEDS: PARoxetine 20 MG TABLET PO SCH (07:51)
[2020-11-08] MEDS: allopurinoL 100 MG TABLET PO SCH (07:51)
[2020-11-08] MEDS: Furosemide 40 MG/4 ML VIAL IVP SCH (07:52)
[2020-11-08] MEDS: Piperacillin/Tazobactam 3.375 GM in 0.9 % Sodium Chloride Mini Bag 100 ML IVPB SCH ×2 (10:50→22:47)
[2020-11-08] MEDS ORDERED: 0.9 % Sodium Chloride 250 ML ONE (14:55)
[2020-11-08] MEDS: Heparin 25,000UNIT/250ML 1/2NS 25,000 UNIT/250 ML IV.SOLN IVC SCH (16:58)
[2020-11-09 05:33] LABS: Basophils # 0.1 K/mcL (0.0-0.2); Basophils % 0.9 %; Eosinophils # 0.2 K/mcL (0.0-0.6); Eosinophils % 1.9 %; Hematocrit 30.8 % (35.3-44.9); Hemoglobin 9.8 g/dL (11.5-15.4); Immature Granulocytes % 0.8 % (0-4); Lymphocytes # 2.5 K/mcL (0.6-4.6); Lymphocytes % 23.1 %; Mean Corpuscular HGB Conc 31.8 g/dL (31.6-35.5); Mean Corpuscular Hemoglobin 30.8 pg (28.0-33.3); Mean Corpuscular Volume 96.9 fL (83.0-100.0); Mean Platelet Volume 11.3 fL (9.4-12.4); Monocytes # 0.8 K/mcL (0.0-1.3); Monocytes % 7.9 %; Platelet Count 184 K/mcL (140-400); Red Blood Count 3.18 M/mcL (3.82-4.97); Red Cell Distribution Width 13.7 % (11.5-14.5); Segmented Neutrophils % 65.4 %; White Blood Count 10.7 K/mcL (4.3-11.1)
[2020-11-09 05:53] LABS: Calcium 8.4 mg/dL (8.6-10.3); Potassium 3.5 mEq/L (3.5-5.1)
[2020-11-09] MEDS ORDERED: Vancomycin 500 MG in 0.9 % Sodium Chloride Mini Bag 100 ML IVPB ONE (07:00)
[2020-11-09] MEDS: Furosemide 40 MG/4 ML VIAL IVP SCH (07:50)
[2020-11-09] MEDS: allopurinoL 100 MG TABLET PO SCH (07:50)
[2020-11-09] MEDS: Aspirin Enteric Coated 81 MG Tablet PO SCH (07:50)
[2020-11-09] MEDS: Metoprolol XL (24 HR) Succ 25 MG TAB.ER.24H PO SCH (07:50)
[2020-11-09] MEDS: PARoxetine 20 MG TABLET PO SCH (07:50)
[2020-11-09 08:29] LABS: Hematocrit 32.6 % (35.3-44.9); Hemoglobin 10.6 g/dL (11.5-15.4)
[2020-11-09] MEDS: Piperacillin/Tazobactam 3.375 GM in 0.9 % Sodium Chloride Mini Bag 100 ML IVPB SCH ×2 (10:46→21:12)
[2020-11-10 04:50] LABS: Basophils # 0.1 K/mcL (0.0-0.2); Basophils % 0.9 %; Eosinophils # 0.3 K/mcL (0.0-0.6); Eosinophils % 2.7 %; Hematocrit 31.6 % (35.3-44.9); Hemoglobin 10.1 g/dL (11.5-15.4); Immature Granulocytes % 1.1 % (0-4); Lymphocytes # 2.8 K/mcL (0.6-4.6); Lymphocytes % 28.7 %; Mean Corpuscular Hemoglobin 30.9 pg (28.0-33.3); Mean Corpuscular Volume 96.6 fL (83.0-100.0); Mean Platelet Volume 10.8 fL (9.4-12.4); Monocytes % 9.7 %; Neutrophils # 5.6 K/mcL (1.6-8.9); Platelet Count 186 K/mcL (140-400); Red Blood Count 3.27 M/mcL (3.82-4.97); Red Cell Distribution Width 13.7 % (11.5-14.5); Segmented Neutrophils % 56.9 %; White Blood Count 9.8 K/mcL (4.3-11.1)
[2020-11-10 05:11] LABS: Calcium 8.5 mg/dL (8.6-10.3); Potassium 3.8 mEq/L (3.5-5.1)
[2020-11-10] MEDS: PARoxetine 20 MG TABLET PO SCH (08:09)
[2020-11-10] MEDS: Aspirin Enteric Coated 81 MG Tablet PO SCH (08:09)
[2020-11-10] MEDS: Metoprolol XL (24 HR) Succ 25 MG TAB.ER.24H PO SCH (08:09)
[2020-11-10] MEDS: allopurinoL 100 MG TABLET PO SCH (08:09)
[2020-11-10] MEDS ORDERED: Furosemide 40 MG TABLET PO SCH (09:00)
[2020-11-10] MEDS: Piperacillin/Tazobactam 3.375 GM in 0.9 % Sodium Chloride Mini Bag 100 ML IVPB SCH (11:05)
[2020-11-10 11:19] VITALS: BP 108/74
== END 2020-11-10 13:00 | disposition home or self-care (01) | DRG 871 ==
LOC: 2NNU 09:14 → EMEROOARM 09:14 → OBSVTOIN 11:52 → SUATTDRO 11:52 → 2NNU 16:06
PROVIDERS: ADMIT Internal Medicine; ATTEND Family Medicine